=== PATIENT | female | born 1935 | race African-American/Black ===

== ENCOUNTER 2022-12-04 10:46 | Inpatient (IN) | payer MEDICARE, OTHER ==
[~2022-12-04] VITALS: Ht 167.6 cm; Wt 62.6 kg
[2022-12-04] MEDS ORDERED: VANCOMYCIN 1G PREMIX 200 ML IV ONE (11:00)
[2022-12-04] MEDS ORDERED: SODIUM CHLORIDE 0.9% 1000ML BAG (SEPSIS BOLUS) IV ONE (11:00)
[2022-12-04] MEDS ORDERED: ACETAMINOPHEN 650MG SUPP PR STA (11:00)
[2022-12-04] MEDS ORDERED: LEVOFLOXACIN 500MG PREMIX 100 ML IV ONE (11:00)
[2022-12-04 11:47] LABS: BASOPHILS % 0.3 % (0.0-2.0); HEMATOCRIT. 41.1 % (36.0-48.0); HEMOGLOBIN. 13.5 g/dL (12.0-16.0); LYMPHOCYTES % 11.6 % (20.0-50.0); MEAN CORPUSCULAR HEMOGLOBIN 23.2 pg (28.0-32.0); MEAN CORPUSCULAR VOLUME 70.6 fL (81.0-99.0); NEUTROPHILS % 81.1 % (40.0-76.0); RED BLOOD CELL COUNT 5.83 mill/uL (4.2-5.4); RED CELL DISTRIBUTION WIDTH 16.9 % (11.6-14.6)
[2022-12-04] MEDS ORDERED: HYDRALAZINE 20MG/ML VIAL IV NR (12:15)
[2022-12-04] MEDS ORDERED: LORAZEPAM 2MG/ML CPJ IV ONE (12:30)
[2022-12-04 13:06] LABS: MEAN PLATELET VOLUME 10.1 fl (7.4-10.4); PLATELET 145 x1000/uL (130-400)
[2022-12-04 13:29] LABS: INR 1.2; PROTHROMBIN TIME 12.9 sec (9.6-11.0)
[2022-12-04 13:59] LABS: CHLORIDE 100 mEq/L (98-107)
[2022-12-04] MEDS ORDERED: HYDRALAZINE 20MG/ML VIAL IV ONE ×2 (14:00→19:30)
[2022-12-04] MEDS ORDERED: POTASSIUM CHLORIDE INJ 30 MEQ in DEXT 5%/0.9% NACL 1,000 ML IV ONE (14:30)
[2022-12-04 17:59] LABS: CLARITY URINE TURBID (CLEAR); COLOR URINE RED (YELLOW); KETONES URINE 2+ (NEGATIVE); LEUKOCYTE ESTERASE URINE 1+ (NEGATIVE); NITRITE URINE NEGATIVE (NEGATIVE); OCCULT BLOOD URINE 3+ (NEGATIVE); PH URINE 8.5 (4.5-8.0); PROTEIN URINE 3+ (NEGATIVE); SPECIFIC GRAVITY URINE 1.013 (1.005-1.030); UROBILINOGEN URINE 0.2 E.U./dL (0.2-1.0)
[2022-12-04 19:04] LABS: CHLORIDE 102 mEq/L (98-107)
[2022-12-04 20:45] VITALS: BP 176/99
[2022-12-04] MEDS ORDERED: LORAZEPAM 2MG/ML CPJ IV PRN (22:45)
[2022-12-04] MEDS ORDERED: ONDANSETRON HCL 4MG/2ML INJ IV PRN (22:45)
[2022-12-05] VITALS (9 sets, daily range): BP systolic 131–178; BP diastolic 81–116
[2022-12-05] MEDS: DEXT 5%/0.45% NACL KCL 20MEQ/L 1,000 ML IV SCH ×3 (00:05→21:49)
[2022-12-05] MEDS ORDERED: PIPERACILLIN/TAZOBACTAM 3.375 G in DEXTROSE 5% WATER 50 ML IV SCH (06:00)
[2022-12-05] MEDS: PANTOPRAZOLE SODIUM 40 MG/VIAL IV SCH (08:31)
[2022-12-05] MEDS ORDERED: ENOXAPARIN 40MG/0.4ML SYR SUBCUT SCH (09:00)
[2022-12-05] MEDS: HYDRALAZINE 20MG/ML VIAL IV PRN ×2 (10:45→16:51)
[2022-12-05] MEDS ORDERED: LEVETIRACETAM 500 MG in SODIUM CHLORIDE 0.9% 100 ML IV SCH (10:45)
[2022-12-05] MEDS ORDERED: LORAZEPAM 2MG/ML CPJ IV NR (10:45)
[2022-12-05] MEDS ORDERED: LEVOFLOXACIN 500MG PREMIX 100 ML IV SCH (11:00)
[2022-12-05] MEDS: KCL 20MEQ/100ML PREMIX 100 ML IV SCH ×2 (11:58→13:40)
[2022-12-05] MEDS: LEVETIRACETAM 500MG PREMIX 100 ML IV SCH ×2 (12:49→21:49)
[2022-12-05 16:52] LABS: BASOPHILS % 0.3 % (0.0-2.0); HEMATOCRIT. 37.8 % (36.0-48.0); HEMOGLOBIN. 12.4 g/dL (12.0-16.0); LYMPHOCYTES % 13.3 % (20.0-50.0); MEAN CORPUSCULAR HEMOGLOBIN 22.8 pg (28.0-32.0); MEAN CORPUSCULAR VOLUME 69.5 fL (81.0-99.0); MONOCYTES % 8.1 % (2.0-8.0); NEUTROPHILS % 78.3 % (40.0-76.0); RED BLOOD CELL COUNT 5.44 mill/uL (4.2-5.4)
[2022-12-05 17:09] LABS: CHLORIDE 106 mEq/L (98-107)
[2022-12-05 17:23] LABS: PHOSPHORUS 1.8 mg/dL (2.5-4.9)
[2022-12-05 17:47] LABS: FOLIC ACID (FOLATE) SERUM 8.7 ng/mL (>5.38)
[2022-12-05 18:37] LABS: MEAN PLATELET VOLUME 10.1 fl (7.4-10.4); PLATELET 121 x1000/uL (130-400); PLATELET ESTIMATE SLIGHTLY DECREASED
[2022-12-05] MEDS: LORAZEPAM 2MG/ML CPJ IV PRN (18:42)
[2022-12-05] MEDS ORDERED: PHENYTOIN SODIUM 500 MG in SODIUM CHLORIDE 0.9% 50 ML IV NR (20:00)
[2022-12-06] VITALS: BP 91/56
[2022-12-06] MEDS: PHENYTOIN SODIUM 100MG/2ML VIAL IV SCH ×4 (00:27→21:20)
[2022-12-06 04:00] VITALS: BP 122/73
[2022-12-06 08:00] VITALS: BP 136/78
[2022-12-06] MEDS: DEXT 5%/0.45% NACL KCL 20MEQ/L 1,000 ML IV SCH ×2 (08:42→17:13)
[2022-12-06] MEDS: PANTOPRAZOLE SODIUM 40 MG/VIAL IV SCH (08:42)
[2022-12-06] MEDS: LEVETIRACETAM 500MG PREMIX 100 ML IV SCH ×2 (08:42→21:21)
[2022-12-06 12:00] VITALS: BP 130/78
[2022-12-06 16:00] VITALS: BP 132/79
[2022-12-06 16:52] LABS: BASOPHILS % 0.8 % (0.0-2.0); HEMATOCRIT. 34.4 % (36.0-48.0); LYMPHOCYTES % 26.2 % (20.0-50.0); MEAN CORPUSCULAR HEMOGLOBIN 22.7 pg (28.0-32.0); MEAN CORPUSCULAR VOLUME 70.8 fL (81.0-99.0); MONOCYTES % 13.9 % (2.0-8.0); NEUTROPHILS % 58.1 % (40.0-76.0); RED BLOOD CELL COUNT 4.85 mill/uL (4.2-5.4); RED CELL DISTRIBUTION WIDTH 17.5 % (11.6-14.6)
[2022-12-06 16:53] LABS: CHLORIDE 110 mEq/L (98-107)
[2022-12-06 17:28] LABS: MEAN PLATELET VOLUME 9.5 fl (7.4-10.4); PLATELET 107 x1000/uL (130-400)
[2022-12-06 20:00] VITALS: BP 143/91
[2022-12-07] VITALS: BP 142/86
[2022-12-07 04:00] VITALS: BP 136/78
[2022-12-07] MEDS: DEXT 5%/0.45% NACL KCL 20MEQ/L 1,000 ML IV SCH ×3 (05:49→20:06)
[2022-12-07] MEDS: PHENYTOIN SODIUM 100MG/2ML VIAL IV SCH ×3 (05:49→21:47)
[2022-12-07 08:00] VITALS: BP 159/89
[2022-12-07] MEDS: PANTOPRAZOLE SODIUM 40 MG/VIAL IV SCH (09:52)
[2022-12-07] MEDS: LEVETIRACETAM 500MG PREMIX 100 ML IV SCH ×2 (10:04→20:06)
[2022-12-07 12:00] VITALS: BP 158/89
[2022-12-07 16:00] VITALS: BP 184/101
[2022-12-07] MEDS: HYDRALAZINE 20MG/ML VIAL IV PRN (19:18)
[2022-12-07 20:00] VITALS: BP 154/77
[2022-12-07] MEDS: LORAZEPAM 2MG/ML CPJ IV PRN (21:46)
[2022-12-08] VITALS: BP 142/71
[2022-12-08 04:00] VITALS: BP 125/77
[2022-12-08] MEDS: DEXT 5%/0.45% NACL KCL 20MEQ/L 1,000 ML IV SCH (05:16)
[2022-12-08] MEDS: PHENYTOIN SODIUM 100MG/2ML VIAL IV SCH ×2 (05:16→15:09)
[2022-12-08 08:00] VITALS: BP 155/89
[2022-12-08] MEDS: LEVETIRACETAM 500MG PREMIX 100 ML IV SCH (09:13)
[2022-12-08] MEDS: PANTOPRAZOLE SODIUM 40 MG/VIAL IV SCH (09:13)
[2022-12-08 12:00] VITALS: BP 141/90
[2022-12-08 16:00] VITALS: BP 137/77
[2022-12-08 20:00] VITALS: BP 146/83
[2022-12-08] MEDS: LEVETIRACETAM 500MG/5ML CUP PO SCH (21:17)
[2022-12-08] MEDS: PHENYTOIN SODIUM EXTENDED 100MG CAPSULE PO SCH (21:18)
[2022-12-08] MEDS: LORAZEPAM 2MG/ML CPJ IV PRN (21:18)
[2022-12-09] VITALS: BP 116/77
[2022-12-09 04:00] VITALS: BP 136/85
[2022-12-09] MEDS: PHENYTOIN SODIUM EXTENDED 100MG CAPSULE PO SCH ×2 (05:39→13:15)
[2022-12-09 08:00] VITALS: BP 138/87
[2022-12-09] MEDS: LEVETIRACETAM 500MG/5ML CUP PO SCH ×2 (08:30→21:00)
[2022-12-09] MEDS: PANTOPRAZOLE SODIUM 40 MG/VIAL IV SCH (08:30)
[2022-12-09 12:00] VITALS: BP 128/83
[2022-12-09] MEDS ORDERED: PHEN100C4 MT ×2 (14:24→14:25)
[2022-12-09] MEDS ORDERED: KEPP500 MT ×2 (14:24→14:25)
[2022-12-09 16:00] VITALS: BP 154/86
[2022-12-09 20:00] VITALS: BP 139/76
[2022-12-09] MEDS: APIXABAN 5 MG TABLET PO SCH (21:00)
[2022-12-09] MEDS: LORAZEPAM 2MG/ML CPJ IV PRN (21:01)
[2022-12-10] VITALS: BP 123/80
[2022-12-10 04:00] VITALS: BP 136/74
[2022-12-10 07:32] LABS: BASOPHILS % 0.8 % (0.0-2.0); EOSINOPHILS % 3.4 % (0.0-5.0); HEMATOCRIT. 34.4 % (36.0-48.0); HEMOGLOBIN. 11.2 g/dL (12.0-16.0); LYMPHOCYTES % 28.1 % (20.0-50.0); MEAN CORPUSCULAR HEMOGLOBIN 23.1 pg (28.0-32.0); MEAN CORPUSCULAR VOLUME 71.1 fL (81.0-99.0); MONOCYTES % 14.5 % (2.0-8.0); NEUTROPHILS % 53.2 % (40.0-76.0); RED BLOOD CELL COUNT 4.84 mill/uL (4.2-5.4); RED CELL DISTRIBUTION WIDTH 16.7 % (11.6-14.6)
[2022-12-10 08:00] VITALS: BP 134/77
[2022-12-10] MEDS: APIXABAN 5 MG TABLET PO SCH ×2 (08:13→20:59)
[2022-12-10] MEDS: LEVETIRACETAM 500MG/5ML CUP PO SCH ×2 (08:13→20:59)
[2022-12-10] MEDS: PANTOPRAZOLE SODIUM 40 MG/VIAL IV SCH (08:13)
[2022-12-10 08:16] LABS: CHLORIDE 106 mEq/L (98-107)
[2022-12-10 10:24] LABS: PLATELET 90 x1000/uL (130-400)
[2022-12-10 12:00] VITALS: BP 141/83
[2022-12-10 16:00] VITALS: BP 134/86
[2022-12-10] MEDS ORDERED: LORAZEPAM 2MG/ML CPJ IV PRN (19:45)
[2022-12-10 20:00] VITALS: BP 153/92
[2022-12-11] VITALS: BP 147/78
[2022-12-11 04:00] VITALS: BP 135/80
[2022-12-11 08:00] VITALS: BP 138/79
[2022-12-11] MEDS: LEVETIRACETAM 500MG/5ML CUP PO SCH ×2 (10:20→20:50)
[2022-12-11] MEDS: APIXABAN 5 MG TABLET PO SCH (10:20)
[2022-12-11 12:00] VITALS: BP 128/78
[2022-12-11] MEDS: PANTOPRAZOLE SODIUM 40 MG/VIAL IV SCH (12:18)
[2022-12-11 16:00] VITALS: BP 171/89
[2022-12-11 20:00] VITALS: BP 154/84
[2022-12-12] VITALS: BP 159/99
[2022-12-12 04:00] VITALS: BP 167/97
[2022-12-12] MEDS: HYDRALAZINE 20MG/ML VIAL IV PRN (04:19)
[2022-12-12 06:36] VITALS: BP 156/78
[2022-12-12] MEDS: PANTOPRAZOLE SODIUM 40 MG/VIAL IV SCH (09:00)
[2022-12-12] MEDS: LEVETIRACETAM 500MG/5ML CUP PO SCH (09:09)
[2022-12-12 10:15] VITALS: BP 155/94
== END 2022-12-12 11:00 | disposition hospice, home (50) | DRG 70 ==
LOC: ER 10:46 → EDBEDREQSVC 12:36 → EDBEDREQTM 12:36 → EDBEDREQ 12:36 → 7WST 19:02 → EDBEDREQSVC 19:11 → EDBEDREQ 19:11 → EDBEDREQTM 19:36 → EDBEDREQ 19:36 → EDBEDREQSVC 19:37 → 7WST 22:39
PROVIDERS: ADMIT Internal Medicine; ATTEND Internal Medicine
PROC: 4A00X4Z Measurement of Central Nervous Electrical Activity, External Approach (ICD-10-PCS; principal; 2022-12-08)
DX: G93.41 Metabolic encephalopathy (principal); R65.11 Systemic inflammatory response syndrome (SIRS) of non-infectious origin with acute organ dysfunction; N39.0 Urinary tract infection, site not specified; E87.6 Hypokalemia; I10 Essential (primary) hypertension; Z20.822 Contact with and (suspected) exposure to COVID-19; Z66 Do not resuscitate; F03.90 Unspecified dementia, unspecified severity, without behavioral disturbance, psychotic disturbance, mood disturbance, and anxiety; M48.061 Spinal stenosis, lumbar region without neurogenic claudication; Z85.028 Personal history of other malignant neoplasm of stomach; Z86.718 Personal history of other venous thrombosis and embolism; Z88.0 Allergy status to penicillin; Z79.899 Other long term (current) drug therapy; Z74.01 Bed confinement status; Z51.5 Encounter for palliative care; R56.9 Unspecified convulsions
CPT/HCPCS: 36415; 70460; 70551; 71045; 74176; 80048; 80053; 80076; 80185; 81003; 82248; 82550; 82607; 82746; 82962; 83036; 83540; 83550; 83605; 83615; 83735; 83880; 84100; 84145; 84484; 85025; 85044; 87426; 92610; 93005; 95816; 99291; C9113; C9803; J0360; J1165; J1650; J1953; J1956; J2060; J3370; J3480; J7030; J7042; A4315